=== PATIENT | female | born 1950 | race Caucasian/White ===

== ENCOUNTER 2018-09-28 05:34 | Day surgery (SDC) | payer OTHER ==
[~2018-09-28] VITALS: Ht 160 cm; Wt 90.7 kg
[~2018-09-28 05:34] MED LIST: ACIDOPHILUS1 EAC4 PO; ALLEGRA ALLERG180 MG PO; CARDIZEM60 MG PO; ELIQUIS5 MG PO; ESCITALOPRAM OX10 MG PO; FLUTICASONE PRO16 GM NASAL; LOSARTAN POTASS50 MG PO; SYNTHROID88 MCG PO; TIMOLOL MA0.25 %/52 OPHTHALMIC; VITAMIN D1000 UNI1 PO; XALATAN2.5 ML OPHTHALMIC; ZANTAC 150MG T150 MG PO
[2018-09-28 08:00] VITALS: BP 142/70
--- NOTE | 2018-10-02 06:20 | O ---
[facility] [place] [address] OPERATIVE REPORT Name: JUAN DANIEL MUNOZ V Room #: DEP [facility].#: [id number] Admission: 09/28/18 ������������������ Attend Phys: Mayo Alexander MD Discharge: 09/28/18 ������������������ Date of : 48 Report #: [id number] THIS REPORT FOR: //name// CC: Selene Alexander DATE OF SERVICE: 09/28/2018 SURGEON: Mayo Alexander MD PREOPERATIVE DIAGNOSIS: Bilateral nasal lacrimal duct obstruction. POSTOPERATIVE DIAGNOSIS: Bilateral nasal lacrimal duct obstruction. OPERATION PERFORMED: Bilateral endoscopic dacryoplasty with silicone intubation. ANESTHESIA: General. COMPLICATIONS: None. INDICATIONS FOR SURGERY: This patient has acquired bilateral nasal lacrimal duct stenosis with chronic tearing and discharge, both eyes. The current procedures are undertaken in order to improve the patient's level of lacrimal outflow and visual clarity. Informed consent was obtained to include but not limited to the potential risks for damage to the eye, loss of vision, bleeding, infection, failure to improve the problem and need for further surgery. DESCRIPTION OF OPERATION: The patient was taken to the operating room, where general anesthesia was administered. The medial canthi were anesthetized with 2% Xylocaine with epinephrine mixed with equal parts of 0.75% Marcaine with Wydase. The lateral tapia of the nose were then bilaterally injected with the same anesthetic mixture. The nose was packed with Afrin-soaked cottonoids. The patient was then prepped and draped in the usual sterile fashion. A moist compress was placed on the left eye while attention was turned to the right side. The superior and inferior puncta were then atraumatically dilated with a punctum dilator. A size 0 lacrimal probe was then passed through the superior canalicular system and through the stenosed nasal lacrimal duct. The nasal packing was removed and the endoscope was brought into the field. The inferior turbinate was gently infractured with a Schofield periosteal elevator to allow visualization of the inferior meatus in the area of the opening of the valve of [facility] [address] [place] [address] OPERATIVE REPORT Name: JUAN DANIEL MUNOZ Joaquina Room #: [facility].#: [id number] Admission: 09/28/18 ������������������ Attend Phys: Mayo Alexander MD Discharge: 09/28/18 ������������������ Date of : 48 Report #: [id number] Hasner in the nose. The probe was found and confirmed to be in the proper location. It was removed and subsequently replaced with a size 1 and a size 2 Pérez probe, which also had their passage confirmed endoscopically to be in the proper location. A 3 by 15 LacriCatheter was lubricated with a small quantity of ophthalmic antibiotic ointment. The LacriCatheter was then passed through the superior canalicular system and the stenosed nasal lacrimal duct. The LacriCatheter was confirmed to be in the proper location endoscopically intranasally in the inferior meatus. The LacriCatheter was inflated to 9 atmospheres for 90 seconds and deflated. The catheter was then inflated to 9 atmospheres for 60 seconds. The catheter was then withdrawn to the proximal black ring. It was then inflated to 9 atmospheres for 90 seconds. The balloon was then deflated and reinflated to 9 atmospheres for 60 seconds. The balloon was the aspirated and withdrawn to the distal black ring. It was then inflated to 9 atmospheres for 90 seconds. The balloon was deflated and reinflated to 9 atmospheres for 60 seconds. The balloon was then deflated and vigorously aspirated as it was withdrawn through the superior canalicular system. A Valdivia tube was then passed through the superior canalicular system and out the dilated duct. The Valdivia tube was secured under the inferior turbinate in the inferior meatus with a Valdivia hook and retrieved endoscopically. The Valdivia tube was then passed through the inferior canalicular system in a similar fashion and was retrieved endoscopically in the nose atraumatically. The Valdivia tube was then secured to itself with 3 square throws and then to the lateral wall of the nose with a 5-0 Prolene suture. Attention was then turned to the other side, where the same procedure was performed. Antibiotic steroid drops were then placed in both eyes. A small quantity of ophthalmic antibiotic ointment was placed on the Valdivia tube. The patient was then transported to the recovery area with no anesthetic or operative complications being noted. ��������������������������������������������� <ELECTRONICALLY SIGNED> ���������������������������������������� By: Mayo Alexander MD ��������������������������������������������� 10/02/18 0620 0949 [id number] Mayo Alexander MD /nt
== END 2018-09-28 11:01 | disposition home or self-care (01) ==
LOC: TBA 05:34 → OR 05:34
DX: H04.553 Acquired stenosis of bilateral nasolacrimal duct (principal); I10 Essential (primary) hypertension; I48.91 Unspecified atrial fibrillation; E03.9 Hypothyroidism, unspecified; K21.9 Gastro-esophageal reflux disease without esophagitis; Z90.49 Acquired absence of other specified parts of digestive tract; Z85.850 Personal history of malignant neoplasm of thyroid; Z96.641 Presence of right artificial hip joint; Z98.890 Other specified postprocedural states; Z88.0 Allergy status to penicillin; Z88.2 Allergy status to sulfonamides; Z88.8 Allergy status to other drugs, medicaments and biological substances; Z79.899 Other long term (current) drug therapy; Z79.01 Long term (current) use of anticoagulants
CPT/HCPCS: 50010; 50101; 50261; 50386; 50398; 51777; 56528; 62110; 62900; 64037; 70005